=== PATIENT | female | born 1945 | race Caucasian/White ===

== ENCOUNTER 2018-05-31 11:48 | Emergency (ER) | payer MEDICARE ==
[~2018-05-31] VITALS: Ht 167.6 cm; Wt 77.0 kg
[2018-05-31] MEDS ORDERED: KETOROLAC 30MG/ML VIAL IV STA (12:19)
[2018-05-31] MEDS ORDERED: METOCLOPRAMIDE HCL 10MG/2ML VIAL IV ONE (12:30)
[2018-05-31 12:41] LABS: CHLORIDE 105 mEq/L (98-107)
[2018-05-31 12:42] LABS: BASOPHILS % 0.8 % (0.0-2.0); EOSINOPHILS % 1.2 % (0.0-5.0); HEMATOCRIT. 43.5 % (36.0-48.0); HEMOGLOBIN. 14.1 g/dL (12.0-16.0); LYMPHOCYTES % 20.2 % (20.0-50.0); MEAN CORPUSCULAR HEMOGLOBIN 25.8 pg (28.0-32.0); MEAN CORPUSCULAR VOLUME 79.7 fL (81.0-99.0); MEAN PLATELET VOLUME 9.8 fl (7.4-10.4); MONOCYTES % 6.8 % (2.0-8.0); PLATELET 196 x1000/uL (130-400); RED BLOOD CELL COUNT 5.46 mill/uL (4.2-5.4)
[2018-05-31 15:40] VITALS: BP 130/68
== END 2018-05-31 15:48 | disposition home or self-care (01) ==
LOC: ER 11:48
DX: R51 Headache (principal); H92.01 Otalgia, right ear; R10.9 Unspecified abdominal pain; I10 Essential (primary) hypertension; R00.2 Palpitations; R68.2 Dry mouth, unspecified; G20 Parkinson's disease
CPT/HCPCS: 36415; 80053; 83690; 85025; 96374; 96375; 99284; J1885; J2765

== ENCOUNTER 2018-08-10 12:59 | Emergency (ER) | payer MEDICARE ==
[~2018-08-10] VITALS: Ht 172.7 cm; Wt 84.4 kg
[2018-08-10] MEDS ORDERED: TRAZ-212 MT (13:32)
[2018-08-10] MEDS ORDERED: AMLO5TAB88 MT (13:32)
[2018-08-10] MEDS ORDERED: PROP10TA10 MT (13:32)
[2018-08-10] MEDS ORDERED: LORAZEPAM 2MG/ML CPJ IV STA (14:32)
[2018-08-10] MEDS ORDERED: SODIUM CHLORIDE 0.9% 1,000 ML IV ONE (14:32)
[2018-08-10 15:14] LABS: BASOPHILS % 0.8 % (0.0-2.0); EOSINOPHILS % 0.3 % (0.0-5.0); HEMATOCRIT. 47.2 % (36.0-48.0); HEMOGLOBIN. 15.4 g/dL (12.0-16.0); MEAN CORPUSCULAR HEMOGLOBIN 26.9 pg (28.0-32.0); MEAN CORPUSCULAR VOLUME 82.4 fL (81.0-99.0); MEAN PLATELET VOLUME 10.5 fl (7.4-10.4); MONOCYTES % 7.2 % (2.0-8.0); NEUTROPHILS % 72.7 % (40.0-76.0); PLATELET 183 x1000/uL (130-400); RED BLOOD CELL COUNT 5.72 mill/uL (4.2-5.4); RED CELL DISTRIBUTION WIDTH 16.3 % (11.6-14.6)
[2018-08-10 15:15] LABS: CHLORIDE 104 mEq/L (98-107)
[2018-08-10 15:23] LABS: ETHANOL BLOOD < 10 mg/dL
[2018-08-10 15:59] LABS: CLARITY URINE TURBID (CLEAR); COLOR URINE DARK YELLOW (YELLOW); KETONES URINE 1+ (NEGATIVE); LEUKOCYTE ESTERASE URINE 2+ (NEGATIVE); NITRITE URINE POSITIVE (NEGATIVE); OCCULT BLOOD URINE NEGATIVE (NEGATIVE); PROTEIN URINE 2+ (NEGATIVE); SPECIFIC GRAVITY URINE 1.029 (1.005-1.030)
[2018-08-10 16:13] LABS: *BARBITURATES SCREEN URINE NEGATIVE (NEGATIVE); *COCAINE SCREEN URINE NEGATIVE (NEGATIVE)
[2018-08-10 16:14] LABS: *BENZODIAZEPINES SCREEN URINE NEGATIVE (NEGATIVE); METHADONE URINE SCREEN NEGATIVE (NEGATIVE); OPIATES URINE SCREEN NEGATIVE (NEGATIVE)
[2018-08-10 16:15] LABS: CANNABINOID URINE SCREEN NEGATIVE (NEGATIVE); PHENCYCLIDINE URINE SCREEN NEGATIVE (NEGATIVE)
[2018-08-10 16:30] VITALS: BP 148/64
[2018-08-10] MEDS ORDERED: CEFTRIAXONE 1 G PREMIX 50 ML IV ONE (16:30)
[2018-08-10] MEDS ORDERED: POTASSIUM CHLORIDE 20MEQ TABLET SR PO ONE (16:30)
[2018-08-10 16:36] LABS: *AMPHETAMINES SCREEN URINE NEGATIVE (NEGATIVE)
[2018-08-10] MEDS ORDERED: FLUCONAZOLE 100MG TABLET PO ONE (17:15)
== END 2018-08-10 17:43 | disposition home or self-care (01) ==
LOC: ER 14:29
DX: F41.9 Anxiety disorder, unspecified (principal); R44.0 Auditory hallucinations; B37.49 Other urogenital candidiasis; N39.0 Urinary tract infection, site not specified; I10 Essential (primary) hypertension; F17.200 Nicotine dependence, unspecified, uncomplicated; Z90.49 Acquired absence of other specified parts of digestive tract; Z79.899 Other long term (current) drug therapy; Z98.890 Other specified postprocedural states
CPT/HCPCS: 36415; 70450; 71045; 80053; 80305; 80307; 80329; 81003; 84443; 85025; 87086; 93005; 96365; 96375; 99284; G0482; J0696; J2060; J7030